=== PATIENT | female | born 1995 | race American Indian/Alaskan Native ===

== ENCOUNTER 2022-02-28 10:54 | Emergency (ER) | payer MEDICAID ==
[2022-02-28 13:39] VITALS: BP 120/56
--- NOTE | 2022-02-28 14:19 | Emergency Department Report ---
Abscess Boil HPI - HPI Chief Complaint: Skin/Abscess/Foreign Body Stated Complaint: BUMP RT AXILLA Time Seen by Provider: 02/28/22 14:17 Duration: >1 Week Location: Other Severity: Mild History: Yes Pain, No Fever, No Purulent Drainage, No Numbness, No Foreign Body, No Previous History, No Insect Bite HPI: Patient is a 26-year-old -[place] female that comes to the emergency room with small abscess under her right arm. She has had it for over a week. She denies fever or chills. No systemic symptoms. The abscess comes after she had a waxing. She has had no history of these in the past Home Medications: Previous Rx's Medication Instructions Recorded Last Taken Type Amoxicillin [Trimox CAP] 500 mg PO BID #20 capsule 02/28/22 Unknown Rx Allergies/Adverse Reactions: Allergies Allergy/AdvReac Type Severity Reaction Status Date / Time aspirin Allergy Unknown Verified 02/28/22 13:33 ED Review of Systems ROS: Stated complaint: BUMP RT AXILLA Other details as noted in HPI Comment: All other systems reviewed and negative ED Past Medical Hx - Past Medical History Previous Medical History?: No - Surgical History Past Surgical History?: No - Family History Family history: no significant - Social History Smoking Status: Never Smoker Substance Use Type: None - Medications Home Medications: Home Medications Medication Instructions Recorded Confirmed Last Taken Type Amoxicillin [Trimox CAP] 500 mg PO BID #20 capsule 02/28/22 Unknown Rx ED Abscess Boil Physical Exam - Exam General: Vital signs noted. No distress. Alert and acting appropriately. Size: 2 cm Exam: Yes Tenderness, Yes Normal Neurologic Exam, Yes Normal Circulation, No Fluctuance, No Surrounding Cellulites/Erythema, No Lymphangitis, No Crepitation, No Heart Murmur ED Course Vital Signs 02/28/22 13:33 Temperature 98.2 F Pulse Rate 77 Respiratory 16 Rate Blood Pressure 120/56 [Left] O2 Sat by Pulse 97 Oximetry Critical care attestation.: If time is entered above; I have spent that time in minutes in the direct care of this critically ill patient, excluding procedure time. ED Medical Decision Making - Medical Decision Making Simple abscess under right axilla. The area is hard. There is no area of flatulence to I&D. It is small. Patient has no history of hydradenitis. She states that this came after a waxing. Vital signs are normal. Patient has no fever or chills. No tachycardia or hypotension. No history of the same. Patient educated on abscess and abscess care. Patient being discharged home with discharge plan of care including diet, activity, medications and follow-up. She verbalizes understanding Vital Signs 02/28/22 13:33 Temperature 98.2 F Pulse Rate 77 Respiratory 16 Rate Blood Pressure 120/56 [Left] O2 Sat by Pulse 97 Oximetry - Differential Diagnosis Abscess ED Disposition Clinical Impression: Abscess Disposition: HOME / SELF CARE / HOMELESS Is pt being admited?: No Does the pt Need Aspirin: No Condition: Stable Instructions: Skin Abscess Additional Instructions: Warm compresses to wound. Soaking in Epson salts and warm baths will help. Wound will come to ahead and pop. Take antibiotics until gone [id number] Motrin or Tylenol for pain Follow-up with PCP next week if problem persist. Have given you referral below Prescriptions: Amoxicillin [Trimox CAP] 500 mg PO BID #20 capsule Referrals: SADIQ GOMEZ MD [Staff Physician] - 3-5 Days Forms: Work/School Release Form(ED) Time of Disposition: 14:18
== END 2022-02-28 15:09 | disposition home or self-care (01) ==
LOC: ED 10:54
DX: L02.411 Cutaneous abscess of right axilla (principal); Z88.6 Allergy status to analgesic agent
CPT/HCPCS: 99282